=== PATIENT | female | born 1965 | race Caucasian/White ===

== ENCOUNTER 2020-06-28 08:59 | Outpatient (CLI) | payer BC, SELFPAY ==
--- NOTE | ~2020-06-28 | MM_ITS ---
EXAMINATION: MM scrn [place] implant BI w rian HISTORY: Screening mammogram TECHNIQUE: Craniocaudal and mediolateral oblique 3-D tomosynthesis images with implant displacement a nd synthetic 2-D images were generated. Craniocaudal and mediolateral oblique views of the breasts wi thout implant displacement were obtained using full field digital mammography. CAD analysis was submi tted and interpreted. COMPARISON: Comparison to multiple prior studies sequentially, with oldest reviewed study dated 09/25. BREAST PARENCHYMAL COMPOSITION: The breasts are heterogeneously dense, which may obscure small masses . FINDINGS: There is no evidence of suspicious mass, calcification, or architectural distortion to sugg est malignancy in either breast. There has been no suspicious interval change. IMPRESSION: 1. No mammographic evidence of malignancy. 2. Recommend routine screening mammography in one year. BI-RADS Category 1: Negative Reviewed, dictated and finalized at location A.
== END 2020-06-28 09:00 | disposition home or self-care (01) ==
LOC: ANHIMG 09:00
PROVIDERS: PCP Family Medicine; Visit Provider Family Medicine
DX: Z12.31 Encounter for screening mammogram for malignant neoplasm of breast (principal)
CPT/HCPCS: 77063; 77067

== ENCOUNTER 2021-07-05 16:53 | Outpatient (CLI) | payer BC, SELFPAY ==
--- NOTE | ~2021-07-05 | MM_ITS ---
EXAMINATION: MM scrn [place] implant BI w rian HISTORY: Screening mammogram TECHNIQUE: Craniocaudal and mediolateral oblique 3-D tomosynthesis images with implant displacement a nd synthetic 2-D images were generated. Craniocaudal and mediolateral oblique views of the breasts wi thout implant displacement were obtained using full field digital mammography. CAD analysis was submi tted and interpreted. COMPARISON: Comparison to multiple prior studies sequentially, with oldest reviewed study dated 10/25. BREAST PARENCHYMAL COMPOSITION: The breasts are extremely dense, which lowers the sensitivity of mamm ography. FINDINGS: There are subpectoral silicone implants. There is no evidence of suspicious mass, calcifica tion, or architectural distortion to suggest malignancy in either breast. There has been no suspiciou s interval change. IMPRESSION: 1. No mammographic evidence of malignancy. 2. Recommend routine screening mammography in one year. BI-RADS Category 1: Negative Reviewed, dictated and finalized at location A.
== END 2021-07-05 16:54 | disposition home or self-care (01) ==
LOC: ANHIMG 16:54
PROVIDERS: PCP Family Medicine; Visit Provider Family Medicine
DX: Z12.31 Encounter for screening mammogram for malignant neoplasm of breast (principal)
CPT/HCPCS: 77063; 77067

== ENCOUNTER 2022-09-05 02:55 | Day surgery (SDC) | payer BC, SELFPAY ==
[2022-08-22 14:58] VITALS: BMI 21.4
[2022-09-05 06:50] VITALS: BP 122/76; PULSE 104; RESP 20; TEMP 36.6; O2SAT 99
[2022-09-05] MEDS: LACTATED RINGERS 1,000 ML 150 ML IV CONT (07:01)
[2022-09-05 07:06] LABS: Glucose Point of Care 216 mg/dl (65-105)
--- NOTE | 2022-09-05 07:51 | PM.HPGS ---
History of Present Illness History of Present Illness Consent: Risks, benefits, and alternatives have been discussed and questions answered. Patient agrees to proceed with procedure. Chief complaint: history of colon cancer Narrative: Moon Parra is a 57 year old female Presents for colonoscopy. Patient has a history of colon cancer. Patient had this resected from the splenic flexure 2017. She presents today for screening colonoscopy. Family history is significant that her mother had colon polyps. Patient reports that her current weight appetite and bowel movements are normal. Patient denies abdominal pain. She has had no bleeding. Review of Systems Review of Systems: Review of systems noncontributory. [facility] Past Medical History Medical History Disease of tonsils and adenoids FHx: alpha 1 antitrypsin deficiency Surgical History Surgical History H/O breast augmentation H/O colectomy H/O microdiscectomy Hx of rectal polypectomy Family History Family History Grandparent Acute myocardial infarction Family history of coronary artery disease Mother Diabetes mellitus Family history of mental disorder Hypertension Father Hypertension Cerebrovascular accident Family history of Alzheimer's disease Social History Social History Smoking status: Never smoker Second hand tobacco smoke exposure: No Alcohol intake: never Substance use: never Substance use type: does not use Living arrangements: with family Gender identity (if verbalized by the patient): Female Spiritual care concerns: No Meds Home Medications and Allergies Home Medications Medication Instructions Recorded Confirmed Type insulin lispro 100 unit/mL 1 sliding scale dose subcut 01/03/20 08/22/22 History subcutaneous solution (Humalog USEASDIRECTD U-100 Insulin) lisinopril 5 mg tablet 5 mg PO DAILY 01/03/20 08/22/22 History calcium carbonate 600 mg calcium 600 mg PO DAILY 08/01/20 08/22/22 History (1,500 mg) tablet (Calcium) ketorolac 0.5 % eye drops 1 drop LEFT EYE EVERY OTHER DAY 08/01/20 08/22/22 History coenzyme Q10 75 mg capsule (Ultra 75 mg PO DAILY 03/12/21 08/22/22 History CoQ10) sumatriptan succinate 100 mg tablet See Rx Instructions PO .COMPLEX #9 12/10/21 08/22/22 Rx tabs antiarthritic combination no.2 900 900 mg PO DAILY 01/04/22 08/22/22 History mg tablet (glucosamine-chondroitin) sertraline 25 mg tablet 37.5 mg PO DAILY 90 days #135 tabs 04/09/22 08/22/22 Rx sodium,potassium,mag sulfates 17.5 See Rx Instructions PO .COMPLEX 08/01/22 Rx gram-3.13 gram-1.6 gram oral soln #354 mL (Suprep Bowel Prep Kit) atorvastatin 10 mg tablet 10 mg PO EVERY OTHER DAY 08/22/22 08/22/22 History multivitamin-ferrous 1 tablet PO DAILY 08/22/22 08/22/22 History fumarate-folic acid 18 mg-400 mcg tablet (Centrum Women) sodium,potassium,mag sulfates 17.5 See Rx Instructions PO .COMPLEX 09/02/22 Rx gram-3.13 gram-1.6 gram oral soln #354 mL (Suprep Bowel Prep Kit) Allergies Allergy/AdvReac Type Severity Reaction Status Date / Time No Known Allergies Allergy Verified 09/05/22 06:49 Vital Signs Vital Signs - 24 hr 09/05/22 06:50 Temperature 98 F Pulse Rate 104 H Respiratory Rate 20 Blood Pressure 122/76 Pulse Oximetry 99 Oxygen Delivery Room Air Exam Narrative: Physical exam reveals patient be alert. Vital signs stable. HEENT exam is unremarkable. Patient is anicteric. Lungs are clear to auscultation and percussion. Heart is without murmur or extra sounds. Abdomen bowel sounds are present soft nontender with no organomegaly. Digital external rectal exam is normal. Assessment and Plan Assessment and plan (1) History of colon can
--- NOTE | 2022-09-05 07:56 | WPDANESEPPF ---
Anes - Initial Pre Proc Eval Procedure: Operation Date: 09/05/22 08:00 Proposed Procedures p Screening Colonoscopy - James Aguilar MD Date/Time: 09/05/22 07:56 Surgeon: James Aguilar MD Pre Op Diagnosis: history of colon cancer Patient Data Age: 57 Gender: F Height: 1.73 m Weight: 63.2 kg Last Vital Signs Temp 98 F 09/05/22 06:50 Pulse 104 H 09/05/22 06:50 Resp 20 09/05/22 06:50 BP 122/76 09/05/22 06:50 Pulse Ox 99 09/05/22 06:50 O2 Del Method Room Air 09/05/22 06:50 Allergies Allergy/AdvReac Type Severity Reaction Status Date / Time No Known Allergies Allergy Verified 09/05/22 06:49 Home Medications Medication Instructions Recorded Confirmed Type insulin lispro 100 unit/mL 1 sliding scale dose subcut 01/03/20 08/22/22 History subcutaneous solution (Humalog USEASDIRECTD U-100 Insulin) lisinopril 5 mg tablet 5 mg PO DAILY 01/03/20 08/22/22 History calcium carbonate 600 mg calcium 600 mg PO DAILY 08/01/20 08/22/22 History (1,500 mg) tablet (Calcium) ketorolac 0.5 % eye drops 1 drop LEFT EYE EVERY OTHER DAY 08/01/20 08/22/22 History coenzyme Q10 75 mg capsule (Ultra 75 mg PO DAILY 03/12/21 08/22/22 History CoQ10) sumatriptan succinate 100 mg tablet See Rx Instructions PO .COMPLEX #9 12/10/21 08/22/22 Rx tabs antiarthritic combination no.2 900 900 mg PO DAILY 01/04/22 08/22/22 History mg tablet (glucosamine-chondroitin) sertraline 25 mg tablet 37.5 mg PO DAILY 90 days #135 tabs 04/09/22 08/22/22 Rx sodium,potassium,mag sulfates 17.5 See Rx Instructions PO .COMPLEX 08/01/22 Rx gram-3.13 gram-1.6 gram oral soln #354 mL (Suprep Bowel Prep Kit) atorvastatin 10 mg tablet 10 mg PO EVERY OTHER DAY 08/22/22 08/22/22 History multivitamin-ferrous 1 tablet PO DAILY 08/22/22 08/22/22 History fumarate-folic acid 18 mg-400 mcg tablet (Centrum Women) sodium,potassium,mag sulfates 17.5 See Rx Instructions PO .COMPLEX 09/02/22 Rx gram-3.13 gram-1.6 gram oral soln #354 mL (Suprep Bowel Prep Kit) Laboratory Tests 09/05/22 06:55 POC Capillary Glucose 216 mg/dl H mg/dl (65-105) Patient hx anesthesia problems: none Family hx anesthesia problems: none Results Review: All pre-operative results and documents have been reviewed as part of the pre-operative evaluation. [facility] Past Medical History Medical History (Reviewed 05/17/22 @ 09:46 by Ansley Anguiano [facility]) Disease of tonsils and adenoids FHx: alpha 1 antitrypsin deficiency Surgical History Surgical History H/O breast augmentation H/O colectomy H/O microdiscectomy Hx of rectal polypectomy Family History Family History (Reviewed 05/17/22 @ 09:46 by Ansley Anguiano [facility]) Grandparent Acute myocardial infarction Family history of coronary artery disease Mother Diabetes mellitus Family history of mental disorder Hypertension Father Hypertension Cerebrovascular accident Family history of Alzheimer's disease Social History Social History (Reviewed 05/17/22 @ 09:46 by Ansley Anguiano [facility]) Smoking status: Never smoker Second hand tobacco smoke exposure: No Alcohol intake: never Substance use: never Substance use type: does not use Living arrangements: with family Gender identity (if verbalized by the patient): Female Spiritual care concerns: No Anes - Eval Final PreProcedure Day of Procedure 09/05/22 07:56 Patient weight: normal Heart: regular rate and rhythm Lungs: clear to auscultation Airway: Mallampati scale class II Neurological: alert and oriented Last oral intake: >/= 8 hours ASA classification: III Emergent: no Anesthetic plan: proceed Anesthesia type and monitoring: general GIVS and standard monitoring Results Review: All pre-operative results and documents have been reviewed as part of the pre-operative evaluation. Informed Consent: The patient's a
[2022-09-05 08:17] VITALS: BP 102/54; PULSE 73; RESP 17; O2SAT 94
[2022-09-05 08:27] VITALS: BP 98/54; PULSE 72; RESP 20; O2SAT 93
[2022-09-05 08:37] VITALS: BP 107/58; PULSE 73; RESP 21; O2SAT 97
[2022-09-05 08:43] LABS: Glucose Point of Care 202 mg/dl (65-105)
== END 2022-09-05 08:45 | disposition home or self-care (01) ==
PROVIDERS: PCP Family Medicine; Visit Provider Internal Medicine Gastroenterology
PROC: 0DJD8ZZ Inspection of Lower Intestinal Tract, Via Natural or Artificial Opening Endoscopic (ICD-10-PCS; CPT 45378; principal; 2022-09-05 08:00)
DX: Z12.11 Encounter for screening for malignant neoplasm of colon (principal); K64.8 Other hemorrhoids; Z85.038 Personal history of other malignant neoplasm of large intestine; Z90.49 Acquired absence of other specified parts of digestive tract; Z98.0 Intestinal bypass and anastomosis status; Z79.4 Long term (current) use of insulin
CPT/HCPCS: 45378; 82948; J2704; J7120

== ENCOUNTER 2022-10-09 10:00 | Outpatient (CLI) | payer BC, SELFPAY ==
--- NOTE | ~2022-10-09 | MM_ITS ---
EXAMINATION: MM scrn [place] implant BI w rian HISTORY: Screening mammogram TECHNIQUE: Craniocaudal and mediolateral oblique 3-D tomosynthesis images with implant displacement a nd synthetic 2-D images were generated. Craniocaudal and mediolateral oblique views of the breasts wi thout implant displacement were obtained using full field digital mammography. CAD analysis was submi tted and interpreted. COMPARISON: Comparison to multiple prior studies sequentially, with oldest reviewed study dated 02/22/2016. BREAST PARENCHYMAL COMPOSITION: The breasts are extremely dense, which lowers the sensitivity of mamm ography FINDINGS: There are bilateral subpectoral silicone implants. There is no evidence of suspicious mass, calcification, or architectural distortion to suggest malignancy in either breast. There has been no suspicious interval change. IMPRESSION: 1. No mammographic evidence of malignancy. 2. Recommend routine screening mammography in one year. BI-RADS Category 1: Negative Reviewed, dictated and finalized at location A. COMBER
== END 2022-10-09 10:01 | disposition home or self-care (01) ==
PROVIDERS: PCP Family Medicine; Visit Provider Family Medicine
DX: Z12.31 Encounter for screening mammogram for malignant neoplasm of breast (principal)
CPT/HCPCS: 77063; 77067

== ENCOUNTER 2024-03-01 08:31 | Outpatient (CLI) | payer BC, SELFPAY ==
--- NOTE | ~2024-03-01 | MM_ITS ---
EXAMINATION: MM scrn [place] implant BI w rian HISTORY: Screening mammogram TECHNIQUE: Craniocaudal and mediolateral oblique 3-D tomosynthesis images with implant displacement a nd synthetic 2-D images were generated. Craniocaudal and mediolateral oblique views of the breasts wi thout implant displacement were obtained using full field digital mammography. CAD analysis was submi tted and interpreted. COMPARISON: 10/09/2022, 07/05/2021 bilateral implant screening mammogram examinations BREAST PARENCHYMAL COMPOSITION: The breasts are heterogeneously dense, which may obscure small masses . FINDINGS: Status post bilateral augmentation mammoplasty. There is no evidence of suspicious mass, ca lcification, or architectural distortion to suggest malignancy in either breast. There has been no cobos spicious interval change. IMPRESSION: 1. No mammographic evidence of malignancy. 2. Recommend routine screening mammography in one year. BI-RADS Category 2: Benign finding(s). Reviewed, dictated and finalized at location B.
== END 2024-03-01 08:32 | disposition home or self-care (01) ==
LOC: ANHIMG 08:34
PROVIDERS: PCP Family Medicine; Visit Provider Family Medicine
DX: Z12.31 Encounter for screening mammogram for malignant neoplasm of breast (principal)
CPT/HCPCS: 77063; 77067

== ENCOUNTER 2024-05-07 11:53 | Outpatient (CLI) | payer BC, SELFPAY ==
--- NOTE | ~2024-05-07 | XR_ITS ---
Left foot Technique: AP, oblique, and lateral views were obtained. Clinical History: Injury Findings: No acute fracture or dislocation is seen. Osseous alignment is anatomic. Joint spaces are p reserved without erosive or degenerative change. Soft tissues are unremarkable. Impression: Unremarkable left foot radiographs. Reviewed, dictated and finalized at location . Impression: Unremarkable left foot radiographs.
== END 2024-05-07 11:54 | disposition home or self-care (01) ==
LOC: ANHIMG 11:54
PROVIDERS: PCP Family Medicine; Visit Provider Family Medicine
DX: S99.922A Unspecified injury of left foot, initial encounter (principal); W22.8XXA Striking against or struck by other objects, initial encounter
CPT/HCPCS: 73630

== ENCOUNTER 2024-11-03 13:56 | Outpatient (CLI) | payer BC, SELFPAY ==
--- NOTE | ~2024-11-03 | DEXA_ITS ---
Bone Density Report Name: RYAN AZEVEDO Age: 59 Sex: Female Ethnicity: White Date of : 1965 Indication: postmenopausal; screening for osteoporosis; prior fracture; cancer; Referring Provider: LUDIN FREEDMAN Study: Bone densitometry was performed. Exam Date: November 03, 2024 Accession number: [id number] Bone Density: Region BMD T-score Z-score Classification AP Spine(L1-L4) 0.952 -0.9 0.7 Normal Femoral Neck (Left) 0.551 -2.7 -1.3 Osteoporosis Total Hip (Left) 0.782 -1.3 -0.3 Osteopenia Femoral Neck (Right) 0.615 -2.1 -0.8 Osteopenia Total Hip (Right) 0.830 -0.9 0.1 Normal Total Hip Mean 0.806 -1.1 -0.1 Osteopenia World Health Organization criteria for BMD impression classify patients as: Normal (T-score at or above -1.0), Osteopenia (T-score between -1.0 and -2.5), or Osteoporosis (T-score at or below -2.5). 10-year Fracture Risk: FRAX not reported because: Some T-score for Spine Total or Hip Total or Femoral Neck at or below -2.5 Clinical Information Provided by Patient: Has had a low trauma fracture Has used the following medications: Vitamin D, Calcium Has the following medical conditions: Cancer, Type 1 Diabetic Patient maximum height was 69 Menopause Age: 52 Drinks caffeinated beverages Onset of menses at age 13 Number of children 2 Missed period for more than 6 months in a row Impression: The patient has established osteoporosis, based on the Left Femoral Neck T-score and the existence of a prior fracture. The patient has risk factors, including: previous fracture. Discussion: HIGH RISK OF FRACTURE. BONE DENSITY IS UNDESIRABLY LOW AT ONE OR MORE SKELETAL SITES, CONSISTENT WITH POSTMENOPAUSAL OSTEOPOROSIS. This patient's lowest T-score, in a patient who has previously fractured, meets the World Health Organization's (WHO) criteria for severe osteoporosis. In untreated patients, the risk of osteoporotic fracture increases approximately two-fold for each 1.0 SD decrease in T-score. Low bone density is not the only risk factor for fracture; also consider factors such as patient's age, frailty or poor health, risk of falling, risk of injury, previous osteoporotic fracture, family history of osteoporosis, cigarette smoking, low body weight, etc. Not everyone with low bone mineral density has osteoporosis; osteomalacia and other metabolic bone disorders should also be considered. Patients who have osteoporosis should be evaluated for specific diseases and conditions (secondary causes) that may cause or contribute to bone loss. The [place] [employer] Endocrinologists (AACE) and National Osteoporosis Foundation (NOF) recommend pharmacologic intervention for all postmenopausal women whose T-score is in this range. The patient should follow a healthful lifestyle (good nutrition with adequate calcium and vitamin D, and appropriate weight-bearing exercise). Follow-Up: Consider a repeat BMD and Vertebral Fracture Assessment (VFA) exam in 2 years or sooner if medically necessary, to reassess this patient's status. Reported by: EV on 11/03/2024 2:50:00 PM. Reviewed, dictated and finalized at location AKrystal FRANCO
== END 2024-11-03 13:57 | disposition home or self-care (01) ==
LOC: ANHIMG 14:01
PROVIDERS: PCP Family Medicine; Visit Provider Obstetrics & Gynecology Gynecology
DX: Z78.0 Asymptomatic menopausal state (principal); M81.0 Age-related osteoporosis without current pathological fracture; M85.852 Other specified disorders of bone density and structure, left thigh; M85.851 Other specified disorders of bone density and structure, right thigh
CPT/HCPCS: 77080

== ENCOUNTER 2025-05-17 09:45 | Outpatient (CLI) | payer BC, SELFPAY ==
--- NOTE | ~2025-05-17 | MM_ITS ---
EXAMINATION: MM scrn [place] implant BI w rian HISTORY: Screening mammogram TECHNIQUE: Craniocaudal and mediolateral oblique 3-D tomosynthesis images with implant displacement a nd synthetic 2-D images were generated. Craniocaudal and mediolateral oblique views of the breasts wi thout implant displacement were obtained using full field digital mammography. CAD analysis was submi tted and interpreted. COMPARISON: 03/01/2024, 10/09/2022 BREAST PARENCHYMAL COMPOSITION: The breasts are extremely dense, which lowers the sensitivity of mamm ography. FINDINGS: There is no evidence of suspicious mass, calcification, or architectural distortion to sugg est malignancy in either breast. There has been no suspicious interval change. IMPRESSION: No mammographic evidence of malignancy. Recommend routine screening mammography in one year. BI-RADS Category 1: Negative Reviewed, dictated and finalized at [facility].
== END 2025-05-17 09:46 | disposition home or self-care (01) ==
PROVIDERS: PCP Family Medicine; Visit Provider Family Medicine
DX: Z12.31 Encounter for screening mammogram for malignant neoplasm of breast (principal)
CPT/HCPCS: 77063; 77067

== ENCOUNTER 2025-08-25 00:48 | Day surgery (SDC) | payer BC, SELFPAY ==
--- OUTSIDE RECORDS SUMMARY | 2010-05-21 10:30 | XMS_ITS | Continuity of Care Document ---
Author Organization [facility] Address [address] [address] [place] [address] Phone Care Team Providers Care Nurse Reviewer Name Role Phone Jamshid Hayden Unavailable Unavailable Procedures Procedure Date Office/outpatient Visit, Est Office/outpatient Visit, Est Office/outpatient Visit, Est Office/outpatient Visit, Est Fundus Photography W/ Report Office/outpatient Visit, Est Office/outpatient Visit, Est Fundus Photography W/ Report Office/outpatient Visit, Est Advance Directives Directive Yes / No Effective Date File Name No Information Encounters Encounter Description Practice Location Reason(s) For Visit Diagnoses Date Provider Providers Copied on Encounter Office/outpat ient Visit, [facility], [address] [place] [address] [address], [place], [place], [id number], tel:[phone] [facility] [place] No Information 8-201 0 Catracho Breen. [address] [place] , [address], [place], [address], [place]. tel:[phone] Office/outpat ient Visit, [facility], [address] [place] [address] [address], [place], [place], [id number], [place] tel:[phone] [facility] [place] No Information 9-200 9 Catracho Breen. [address], [address], [place], [address], [place]. tel:[phone] Office/outpat ient Visit, [facility], [id number] [place] [address] [address], [place], [place], [id number], [place] tel:[phone] [facility] No Information 3-200 9 Catracho Breen. [address] [place] [address] Center , [address], [place], [place], [facility], [place]. tel:[phone] Office/outpat ient Visit, [facility], [address] [place] [address] [address], [place], [place], [id number], [place] tel:[phone] [facility] No Information 0 7-200 8 Catracho Breen. [address] [place] [address] , [address], [place], [place], [facility], [place]. tel:[phone] Referring Provider: Jam[facility]azos, [facility] [place] [address], [place], [place], [facility]. tel:[phone] Office/outpat ient Visit, [facility], [address] [place] [address] [address], [place], [place], [id number], [place] tel:[phone] [facility] No Information 2 5-200 8 Catracho Breen. [address] [place] [address] [address], [address], [place], [place], [facility], [place]. tel:[phone] [facility], [address] [place] [address] [address], [place], [place], [id number], [place] tel:[phone] [facility] No Information 2 4-200 7 Catracho Breen. [facility] [address], [place], [address], [place]. tel:[phone] Referring Provider: Jamshid [facility]azos [facility] [address], [place], [place], [facility]. tel:[phone] Office/outpat ient Visit, [facility], [address], [place], [place], [id number], [place] tel:[phone] [facility] No Information 7 Catracho Breen. [address], [address], [place], [address], [place]. tel:[phone] Family History Family Member Type Diagnosis Age At Onset No Information Payers Payer name Insurance type Covered republican ID Authorbrayan chenvilma(s) [facility] CI [id number] Social History Type Description Quantity Date Captured Comments Sex Female Smoking Status No Information Chief Complaint And Reason For Visit No Information Reason For Referral Reason For Referral No Information History Of Present Illness Encounter Date Complaint History Of Prese nt Illness No Information Functional Status Date Functional Assessmen t No Information Instructions Date Instruction Additional Infor mation No Information Assessments Type Assessment Date No Information Patient Care Teams Name Effective Dates (start - stop) Status Members No Information
[2025-08-11 10:56] VITALS: BMI 21.4
--- OUTSIDE RECORDS SUMMARY | 2025-08-25 00:51 | XMS_ITS | Clinical Summary ---
Author Organization [facility] Address [address] [place] [address] Care Team Providers Care Communications Intern Name Role Phone Demond Myers MD Unavailable [phone] Scotty Munoz MD Unavailable [phone] Catherine Muller DO Primary Care Provider [phone] Allergies No known active allergies Medications atorvastatin (LIPITOR) 10 mg tabletIndicati ons:hyperlipid emia Take 1 tablet (10 mg total) by mouth compliance nurse before breakfast 1 tab po every other day 05/31/20 18 Active calcium carbonate-dileep min D3 600 mg calcium- 200 unit capsuleIndicat ions:Hypocalce tha Prevention Take 1 tablet by mouth compliance nurse before breakfast. Active coenzyme Q10 100 mg capsuleIndicat ions:supplemen t Take 1 capsule (100 mg total) by mouth compliance nurse before breakfast Active SUMAtriptan (IMITREX) 100 mg tabletIndicati ons:Migraine Take 1 tablet (100 mg total) by mouth once as needed for migraine Active glucosam-chond m-[id number]-C-ma ng 750-625-1,000 mg-mg-unit tablet Take by mouth Active ketorolac (ACULAR) 0.5 % ophthalmic solution 02/15/20 20 Active lisinopriL (PRINIVIL,ZEST RIL) 5 mg tablet TAKE 1 TABLET BY MOUTH EVERY MORNING 90 tablet 11/20/20 22 Active insulin glargine (LANTUS) 100 unit/mL vial for injection Take 12 Units every 24 hours in case of pump failure. 10 mL 1 01/07/20 24 025 Active glucagon (Baqsimi) 3 mg/actuation spray,non-aero laura Administer 1 spray into one nostril as needed (hypoglycemia) 1 each 1 01/07/20 24 Active blood glucose diagnostic (Accu-Chek Guide test strips) strip CHECK GLUCOSE EIGHT DAILY 2800 each 1 11/12/20 24 Active sertraline (ZOLOFT) 100 mg tablet Take 1 tablet (100 mg total) by mouth daily ALONG WITH 25MG TO EQUAL 125MG DAILY 04/28/20 25 Active sertraline (ZOLOFT) 25 mg tablet Take 1 tablet (25 mg total) by mouth daily ALONG WITH 100MG TO EQUAL 125MG DAILY 05/19/20 25 Active insulin aspart (NovoLOG) 100 unit/mL vial for injection USE UP TO 70 UNITS EVERY 24 HOURS VIA INSULIN PUMP DIRECTED 60 mL 3 07/27/20 25 Active NovoLOG 100 unit/mL vial for injection PATCH USES UP TO 70 UNITS PER DAY VIA INSULIN PUMP DX CODE E10.9 60 mL 3 09/08/20 23 025 Discontinued Active Problems Problem Noted Date Diagnosed Date Osteoporosis 01/10/2025 Assessment & Plan (01/10/2025 11:18 AM MAINTENANCE AND REPAIR WORKER): T score of -2.7 at left femoral neck. She has f/u to address this tomorrow with another provider. We discussed the following treatment options: Fosamax - weekly pill Reclast - yearly IV Prolia - every 6 month shot Hypertension 03/18/2022 Assessment & Plan (06/13/2025 1:10 PM CDT): BP is ok on current regimen. Assessment & Plan (01/10/2025 12:49 PM MAINTENANCE AND REPAIR WORKER): BP in reasonable range today. Continue lisinopril. Assessment & Plan (08/23/2024 11:48 AM CDT): At goal on current therapy. Assessment & Plan (05/12/2024 10:30 AM CDT): At goal on current therapy. Assessment & Plan (01/07/2024 2:00 PM MAINTENANCE AND REPAIR WORKER): At goal on current therapy. Assessment & Plan (08/18/2023 11:59 AM CDT): At goal on current therapy. Assessment & Plan (04/17/2023 10:05 AM CDT): At goal on current therapy. Assessment & Plan (12/19/2022 9:09 AM MAINTENANCE AND REPAIR WORKER): At goal on current therapy. Assessment & Plan (07/24/2022 1:15 PM CDT): At goal on current therapy. Assessment & Plan (03/18/2022 6:15 PM CDT): At goal on current therapy. Other hyperlipidemia 11/14/2021 Assessment & Plan (06/13/2025 11:31 AM CDT): At goal on current therapy. Assessment & Plan (01/10/2025 11:17 AM MAINTENANCE AND REPAIR WORKER): At goal on current therapy. Assessment & Plan (08/23/2024 11:46 AM CDT): At goal on current therapy. Assessment & Plan (05/12/2024 10:31 AM CDT): At goal on current therapy. Assessment & Plan (01/07/2024 2:01 PM MAINTENANCE AND REPAIR WORKER): At goal on current therapy. Assessment & Plan (08/18/2023 11:59 AM CDT): At goal on current therapy. Assessment & Plan (04/17/2023 10:05 AM CDT): At goal on current therapy. Assessment & Plan (12/19/2022 9:09 AM MAINTENANCE AND REPAIR WORKER): At goal on current therapy. Assessment & Plan (07/24/2022 1:15 PM CDT): At goal on current therapy. Assessment & Plan (03/18/2022 12:26 PM CDT): At goal on current therapy. Assessment & Plan (11/14/2021 1:54 PM MAINTENANCE AND REPAIR WORKER): At goal on current therapy. History of colon cancer 10/01/2018 High risk medication use 09/03/2018 Assessment & Plan (09/04/2018 2:09 PM CDT): Intense insulin regimen in the setting of variable PO intake places patient at increased risk of hypoglycemia. We will continue to intensely monitor blood glucose QID and titrate insulin as needed to optimize glycemic control to avoid hypoglycemic/hyperglycemic events. Assessment & Plan (09/03/2018 4:50 PM CDT): Check blood glucoses QID clerical receptionist associated with adverse incidents 09/03/2018 Assessment & Plan (09/04/2018 2:19 PM CDT): Insulin pump and supplies at bedside. She is alert and oriented x 3 and has the mental capacity and manual dexterity to self-administer her own insulin pump. We reviewed the need to complete the insulin pump bedside log as a stipulation to use the insulin pump as an inpatient. She agrees to complete the insulin pump bedside log as required. Insulin pump settings adjusted to reflect current insulin requirements during this admission. TIME BASAL RATE TOTAL BASAL DAILY DOSE: 13.2 units 0000 0.55 units/hour SENSITIVITY: 50 IAT: 4 hours TARGET: 100-120 ICR: 0000: 1:15 1700: 1:11 2000: 1:15 Assessment & Plan (09/03/2018 4:50 PM CDT): Insulin pump in place. Type 1 diabetes mellitus without complication Overview (09/04/2018): 53 year old female with PMH significant for T1DM managed with insulin pump who presents for sub-total colectomy for adenocarcinoma. She was diagnosed in 1980 and has been on an insulin pump since 1996. She follows with Dr. Myers. Most recent a1c was 6.8%. HOME REGIMEN: medtronic - humalog 0000 0.55u/hr 0300 0.575 0500 0.675 0900 0.775 1100 0.675 1500 0.625 1800 0.675 TDB 15.675 ICR 0000 1:15 1700 1:11 2000 1:15 Sensitivity 50 TG 100-120 AIT 4 hours Assessment & Plan (06/13/2025 1:10 PM CDT): A1c at goal on current therapy. She will send me her recent labs. Eye exams current. She denies neuropathy symptoms and last monofilament exam in last year was normal. Assessment & Plan (01/10/2025 12:49 PM MAINTENANCE AND REPAIR WORKER): A1c at goal on current therapy. Labs current. Continue eye exams with Dr. Parrish. No evidence of neuropathy on monofilament exam today. Assessment & Plan (08/23/2024 11:49 AM CDT): A1c at goal on current therapy. She will schedule a visit with Dr. Parrish. Assessment & Plan (05/12/2024 10:45 AM CDT): A1c at goal on current therapy. Labs reviewed. No neuropathy on examination today. Recommend yearly eye exams. Assessment & Plan (01/07/2024 2:01 PM MAINTENANCE AND REPAIR WORKER): A1c at goal on current therapy. Assessment & Plan (08/18/2023 12:00 PM CDT): A1c at goal on current therapy. Doing well on 780G pump. Assessment & Plan (04/17/2023 10:06 AM CDT): A1c a bit above goal. Tightened ICR with lunch from 1:13 to 1:12. I recommended that she upgrade to the Medtronic 780G pump with Guardian 4 sensor. Assessment & Plan (12/19/2022 9:10 AM MAINTENANCE AND REPAIR WORKER): A1c above goal. Tighten ICR with breakfast from 10.[address] temp target of 150 mg/dl at times of exercise. Labs UTD. Eye exams UTD. Assessment & Plan (07/24/2022 1:15 PM CDT): A1c above goal. Tightened ICR with breakfast from 1:15 to 1:13. She had labs with her PCP this spring. Continue ophthalmology follow up. Assessment & Plan (03/18/2022 6:15 PM CDT): Curiously, A1c continues to be higher than what I would predict based on her excellent CGM report. I would keep her current pump settings. She is training for a half-marathon. Labs through PCP's office soon. Seeing eye doctor routinely. Assessment & Plan (11/14/2021 1:54 PM MAINTENANCE AND REPAIR WORKER): A1c above goal, but glucoses at goal based on review of this week's CGM data. Would not make any pump changes at present. Will order urine microalbumin:Cr; otherwise, labs UTD. F/u with Dr. Parrish in ophthalmology. Assessment & Plan (09/04/2018 2:17 PM CDT): Over the previous 24 hours, blood glucose in good margin of safety, but not at goal with range of 93-207 mg/dl with 21 units insulin from insulin gtt and 8.325 units per insulin pump yesterday. She was transitioned from the insulin gtt to the insulin pump yesterday at her home settings and became hypoglycemic to 52 mg/dl overnight. Ms. Azevedo reported that she suspended the insulin pump for ~ 2 hours after this event. Fasting blood glucose at 0443 was 93 mg/dl. Today, blood glucose was not checked before breakfast or lunch with point of care as the staff nuclear medicine technologist was monitoring blood glucose through the patient's insulin pump. Hospital pump policy was reviewed with the staff nuclear medicine technologist; explaining that POCT blood glucose testing must be completed with the hospital equipment. The RN verbalized understanding. Due to the heavy basal rate, the decreased appetite and hypoglycemia during the night; we will decrease the basal rate on the insulin pump to 0.55 units/hour continuous and maintain the remaining pump settings. Recommend: - Continue insulin pump (see setting below) Insulin pump: medtronic - humalog Program A 0000 0.55u/hr TDB 13.2 units ICR 0000 1:15 1700 1:11 2000 1:15 Sensitivity 50 TG 100-120 AIT 4 hours Discharge: Home Insulin pump Follow-up: Dr. Myers (home street light wirer) Recommendations for diabetes management were discussed with the primary team. For questions regarding this patient today, please call Katerina Burr NP at [phone]. If after hours, please contact the Diabetes Fellow at [phone]. Assessment & Plan (09/03/2018 4:57 PM CDT): Inpatient goal is 100-180mg/dl 53yo w/ DM1 presents for sub-total colectomy for adenocarcinoma. Kept on insulin infusion overnight. Insulin drip rates have decreased. Will plan on transitioning back to insulin pump therapy. Recommend: -resuming insulin pump. Please continue insulin drip for 1 hour prior to discontinuing insulin pump Insulin pump: medtronic - humalog 0000 0.55u/hr 0300 0.575 0500 0.675 0900 0.775 1100 0.675 1500 0.625 1800 0.675 TDB 15.675 ICR 0000 1:15 1700 1:11 1999 1:15 Sensitivity 50 TG 100-120 AIT 4 hours Discharge: Home Insulin pump Follow-up: Dr. Myers (home street light wirer) Diabetes 09/02/2018 Acute pain 09/02/2018 Cancer of splenic flexure 08/10/2018 Overview (08/10/2018): Added automatically from request for surgery [id number] Assessment & Plan (09/04/2018 2:09 PM CDT): S/p sub-total colectomy. Post-operative pain and stress will worsen glycemic control. Assessment & Plan (09/03/2018 4:43 PM CDT): S/p sub-total colectomy. Post-operative pain and stress will worsen glycemic control. Colon adenocarcinoma 07/28/2018 Encounters Date Type Department Care Team Description 06/13/2025 11:00 AM CDT Office Visit [facility] [address] [address] Memo Santiago MD Type 1 diabetes mellitus without complication (HCC) (Primary Dx); Other hyperlipidemia; Hypertension, unspecified type from Last 3 Months Immunizations Immunization Administration Dates Next Due COVID-19 mRNA (VAZATA) 0.3 m L (30 mcg) vaccine (12 years and up) 08/18/2025 Influenza, Quadrivalent, Rec ombinant, Egg Free, Preservative Free, Intramuscular 11/07/2022,01/03/2020 Influenza, Quadrivalent, Spl it, Preservative Free, Intramuscular 11/07/2023,09/05/2018 Influenza, Trivalent, Recomb inant, Egg Free, Preservative Free, Antibiotic Free, IM (FLUBLOK) 11/08/2024 Actacell SARS-CoV-2 Monovalent Vaccination (12+ Yrs) PURPLE 11/13/2021,03/18/2021,02/24/2021 Pneumococcal Conjugate Pcv20 11/07/2022 Pneumococcal Conjugate, Unspecified 11/05/2021 Pneumococcal Polysaccharide PPV23 11/05/2021 Tdap 02/08/2019,07/05/2017 Surgical History Surgery Date Site/Laterality Comments TONSILLECTOMY age 1 or 2 SHOULDER ARTHROSCOPY Right SHOULDER SURGERY Right Broken shoulder; plated TRANSUMBILICAL AUGMENTATION MAMMAPLASTY 11/24/2006 - 11/23/2007 BACK SURGERY 11/24/2010 - 11/23/2011 lumbar. -microdiscectomy SUBTOTAL COLECTOMY 09/02/2018 Laparoscopic-assisted subtotal colectomy with ileo descending colon anastomosis. Intra operative colonoscopy. Medical History Medical History Date Comments Diabetes mellitus insulin pump Hyperlipidemia Migraines History of colon cancer History of colon cancer Macular edema Left eye Family History Medical History Relation Name Comments Arthritis Father Family history of arthritis - (Added by TW Conv) Hypertension Father Family history of hypertension - (Added by TW Conv) Stroke Father Family history of cerebrovascular accident (CVA) - (Added by TW Conv) Melanoma Maternal Grandmother Arthritis Mother Family history of arthritis - (Added by TW Conv) Cancer Mother Family history of malignant neoplasm - (Added by TW Conv) Diabetes Mother Family history of diabetes mellitus - (Added by TW Conv) Hypertension Mother Family history of hypertension - (Added by TW Conv) Lymphoma Mother Scoliosis Mother Family history of scoliosis - (Added by TW Conv) Relation Name Status Comments Father Maternal Grandmother Mother Social History Tobacco Use Types Packs/Day Years Used Date Smoking Tobacco: Never Smokeless Tobacco: Never Tobacco Cessation:Counseling Given: Not Answered Alcohol Use Standard Drinks/Week Comments No 0 (1 standard drink = 0.6 oz pur e alcohol) Comments No Sex and Gender Information Value Date Recorded Sex Assigned at Not on file Legal Sex Female 12:15 AM MAINTENANCE AND REPAIR WORKER Gender Identity Not on file Sexual Orientation Not on file Obstetrics History Last Filed Vital Signs Vital Sign Reading Time Taken Comments Blood Pressure 140/80 06/13/2025 11:15 AM CDT Pulse 87 06/13/2025 11:15 AM CDT Temperature 36.7 C (98.1 F) 09/11/2023 2:11 PM CDT Respiratory Rate 16 09/05/2018 5:20 AM CDT Oxygen Saturation 100% 06/13/2025 11:15 AM CDT Inhaled Oxygen Concentration - - Weight 60.6 kg (133 lb 8 oz) 06/13/2025 11:15 AM CDT Height 172.7 cm (5' 8) 06/13/2025 11:15 AM CDT Body Mass Index 20.3 06/13/2025 11:15 AM CDT Plan of Treatment Health Maintenance Due Date Last Done Comments Breast Cancer Screening-Mammogram 1963 Cervical Cancer Screening 1963 Colon Cancer Screening-Colonoscopy 1963 Depression Screening 1963 Foot Exam 1963 Hepatitis C Screening 1963 TSH Level 1963 eGFR 1963 Dilated Eye Exam 1973 Hepatitis B Screening 1981 Regular Well Visit/Exam 18-64 1981 Zoster Vaccine (1 of 2) 2013 Albumin Creatinine Ratio, Urine 11/14/2022 1 Influenza Vaccine (#1) 2025 4, 11/07/2023, 11/07/2022, Additional history exists Lipid Panel 08/23/2025 08/23/2024, 04/24, 08/18/2023, Additional history exists Hemoglobin A1C 12/14/2025 06/13/2025, 12/25, 08/23/2024, Additional history exists DTaP/Tdap/Td Vaccine (3 - Td or Tdap) 02/08/2029 02/08/2019, 07/05/2017 Pneumococcal vaccine <65 Completed 022, 11/05/2021, 11/05/2021 Covid-19 Vaccine Completed 08/18/2025, , 03/18/2021, Additional history exists Procedures Procedure Name Priority Date/Time Associated Diagnosis Comments POCT HEMOGLOBIN A1C Routine 06/13/2025 1 1:43 AM CDT Type 1 diabetes mellitus without complication (HCC) POCT LIPID PANEL Routine 08/23/2024 12:2 6 PM CDT Type 1 diabetes mellitus without complication (HCC) ALBUMIN CREATININE RATIO, URINE Routine 11/14/2021 12:47 PM MAINTENANCE AND REPAIR WORKER Type 1 diabetes mellitus without complication (HCC) from Last 3 Months or Most Recently Relevant to Health Maintenance Results * (ABNORMAL) POCT hemoglobin A1c (06/13/2025 11:43 AM CDT) Hemoglobin A1C, POC 6.9(A) 4.0 - 5.6 % Capillary blood 06/13/2025 1 1:43 AM CDT Memo Santiago MD POINT OF CARE TEST TAMY THOMPSON Final Result * POCT lipid panel (08/23/2024 12:26 PM CDT) Cholesterol, POC 165 mg/dL HDL, POC 54 mg/dL Triglycerides, POC 82 mg/dL LDL Cholesterol POC 94 mg/dL Chol/HDL Ratio, POC 3.0 Non-HDL Cholesterol, POC 111 mg/dL Cholesterol Total, POC 165 mg/dL Capillary blood 08/23/2024 1 2:26 PM CDT Memo Santiago MD POINT OF CARE TEST TAMY THOMPSON Final Result * Albumin Creatinine Ratio, Urine (11/14/2021 12:47 PM MAINTENANCE AND REPAIR WORKER) Creatinine ur 55.9 Not Estab. mg/dL [facility] - 01 Microalbumin, ur <3.0 Not Estab. ug/mL [facility] - 01 Comment:Verified by repeat analysis Microalbumin/cre at ratio <5 0 - 29 mg/g creat [facility] - 01 Comment: Normal: 0 - 29 Moderately increased: 30 - 300 Severely increased: >300 Urine 11/14/2021 12:4 7 PM MAINTENANCE AND REPAIR WORKER 11/14/2021 Narrative [facility] - 11/15/2021 9:10 AM MAINTENANCE AND REPAIR WORKER Performed at: 01 - [facility] [id number] Faculty Research Physician: Lamonte Pond PhD, Phone: [phone] Memo Santiago MD LAB URINE ORDERABLES nal Result [facility] - 01 from Last 3 Months or Most Recently Relevant to Health Maintenance Insurance CHOICE [facility] [place] Advance [place]ives For more information, please contact: [phone] * Full Code (Latest Code Status on File) Date Activated Date Inactivated Comments 09/02/2018 8:10 PM 09/05/2018 5:06 PM Care Teams Communications Intern Relationship Specialty Start Date End Date Catherine Muller DO [address] [facility] [place] [id number] [place] [address] PCP - General Family Medicine 12/19/22 Demond Myers MD [id number] [facility] [address] [place] [address] Consulting Physician Endocrinology Diabetes & Metabolism 03/13/21 Scotty Munoz MD [address] [facility] [place] [id number] [place] [address] Surgeon Colon and Rectal Surgery 09/13/22
--- OUTSIDE RECORDS SUMMARY | 2025-08-25 00:51 | XMS_ITS ---
Author Organization [facility] Address [address] [place] [address] Care Team Providers Care Pit Crew Support Worker Name Role Phone Demond Myers MD Unavailable [phone] Scotty Munoz MD Unavailable [phone] Catherine Muller DO Primary Care Provider [phone] Active Problems Problem Noted Date Diagnosed Date Osteoporosis 01/10/2025 Assessment & Plan (01/10/2025 11:18 AM PUMP ERECTOR): T score of -2.7 at left femoral neck. She has f/u to address this tomorrow with another provider. We discussed the following treatment options: Fosamax - weekly pill Reclast - yearly IV Prolia - every 6 month shot Hypertension 03/18/2022 Assessment & Plan (06/13/2025 1:10 PM CDT): BP is ok on current regimen. Assessment & Plan (01/10/2025 12:49 PM PUMP ERECTOR): BP in reasonable range today. Continue lisinopril. Assessment & Plan (08/23/2024 11:48 AM CDT): At goal on current therapy. Assessment & Plan (05/12/2024 10:30 AM CDT): At goal on current therapy. Assessment & Plan (01/07/2024 2:00 PM PUMP ERECTOR): At goal on current therapy. Assessment & Plan (08/18/2023 11:59 AM CDT): At goal on current therapy. Assessment & Plan (04/17/2023 10:05 AM CDT): At goal on current therapy. Assessment & Plan (12/19/2022 9:09 AM PUMP ERECTOR): At goal on current therapy. Assessment & Plan (07/24/2022 1:15 PM CDT): At goal on current therapy. Assessment & Plan (03/18/2022 6:15 PM CDT): At goal on current therapy. Other hyperlipidemia 11/14/2021 Assessment & Plan (06/13/2025 11:31 AM CDT): At goal on current therapy. Assessment & Plan (01/10/2025 11:17 AM PUMP ERECTOR): At goal on current therapy. Assessment & Plan (08/23/2024 11:46 AM CDT): At goal on current therapy. Assessment & Plan (05/12/2024 10:31 AM CDT): At goal on current therapy. Assessment & Plan (01/07/2024 2:01 PM PUMP ERECTOR): At goal on current therapy. Assessment & Plan (08/18/2023 11:59 AM CDT): At goal on current therapy. Assessment & Plan (04/17/2023 10:05 AM CDT): At goal on current therapy. Assessment & Plan (12/19/2022 9:09 AM PUMP ERECTOR): At goal on current therapy. Assessment & Plan (07/24/2022 1:15 PM CDT): At goal on current therapy. Assessment & Plan (03/18/2022 12:26 PM CDT): At goal on current therapy. Assessment & Plan (11/14/2021 1:54 PM PUMP ERECTOR): At goal on current therapy. History of [...] 4:50 PM CDT): Check blood glucoses QID naturopathic physician associated with adverse incidents 09/03/2018 Assessment & [...] normal. Assessment & Plan (01/10/2025 12:49 PM PUMP ERECTOR): A1c at goal on current therapy. Labs [...] exams. Assessment & Plan (01/07/2024 2:01 PM PUMP ERECTOR): A1c at goal on current therapy. Assessment [...] sensor. Assessment & Plan (12/19/2022 9:10 AM PUMP ERECTOR): A1c above goal. Tighten ICR with breakfast [...] routinely. Assessment & Plan (11/14/2021 1:54 PM PUMP ERECTOR): A1c above goal, but glucoses at goal [...] became hypoglycemic to 52 mg/dl overnight. Ms. Mark reported that she suspended the insulin pump for ~ 2 hours after this event. Fasting blood glucose at 0443 was 93 mg/dl. Today, blood glucose was not checked before breakfast or lunch with point of care as the staffing administrator was monitoring blood glucose through the patient's insulin pump. Hospital pump policy was reviewed with the staffing administrator; explaining that POCT blood glucose testing must [...] Home Insulin pump Follow-up: Dr. Myers (home rooms director) Recommendations for diabetes management were discussed with the primary team. For questions regarding this patient today, please call Katerina Burr NP at [phone]. If after hours, please contact the Diabetes Fellow at [phone]. Assessment & Plan (09/03/2018 4:57 PM CDT): [...] Home Insulin pump Follow-up: Dr. Myers (home rooms director) Diabetes 09/02/2018 Acute pain 09/02/2018 Cancer of splenic flexure 08/10/2018 Overview (08/10/2018): Added automatically from request for surgery [id number] Assessment & Plan (09/04/2018 2:09 PM CDT): S/p sub-total colectomy. Post-operative pain and stress will worsen glycemic control. Assessment & Plan (09/03/2018 4:43 PM CDT): S/p sub-total colectomy. Post-operative pain and stress will worsen glycemic control. Colon adenocarcinoma 07/28/2018 Current Treatment and Therapy Plans No current plan information found. Past Treatment and Therapy Plans No past plan information found. Lifetime Dose Tracking * Chemical Lifetime Dose Automatic Entry Manual Entr y DLP 3,739 mGycm 3,739 mGycm 0 mGycm
[2025-08-25 08:36] VITALS: BP 109/68; PULSE 99; RESP 16; TEMP 36.6; O2SAT 100; BMI 19.8
[2025-08-25] MEDS: LACTATED RINGERS 1,000 ML 150 ML IV CONT (08:44)
--- NOTE | 2025-08-25 09:44 | PM.IMHP ---
H&P: HPI History of Present Illness Date/Time: 08/25/25 09:44 Chief Complaint: History of colon cancer Narrative: the patient underwent right hemicolectomy for colon cancer many years ago. She has been undergoing periodic colonoscopies, the last one 5 years ago. She is here today for her surveillance colonoscopy. Review of Systems Review of Systems: All systems reviewed & are unremarkable except as noted in HPI and below PMFSH Past Medical History Medical History Benign neoplasm of colon FHx: alpha 1 antitrypsin deficiency Disease of tonsils and adenoids Surgical History Surgical History Hx of rectal polypectomy H/O microdiscectomy H/O breast augmentation H/O colectomy Family History Family History Grandparent Acute myocardial infarction Family history of coronary artery disease Mother Diabetes mellitus Family history of mental disorder Hypertension Father Hypertension Cerebrovascular accident Family history of Alzheimer's disease Social History Social History Social History: Caffeine-coffee daily Smoking status: Never smoker Second hand tobacco smoke exposure: No Alcohol intake: never Substance use: never Substance use type: does not use Lack of Transportation: No Lack of Food: Never True Current Housing: I Have Housing Concerned About Future Housing: No Difficulty Paying Gas/Electric Bills: No Difficulty Paying for Meds: No Currently Unemployed: No Education: Associate Degree Difficulty w/ Childcare or Family Care: No Living arrangements: with family Occupation/Education: retired Gender identity (if verbalized by the patient): Female Spiritual care concerns: No Meds Home Medications and Allergies Home Medications ?Medication ?Instructions ?Recorded ?Confirmed ?Type coenzyme Q10 75 mg capsule (Ultra 75 mg PO DAILY 03/12/21 08/25/25 History CoQ10) antiarthritic combination no.2 900 900 mg PO DAILY 01/04/22 08/25/25 History mg tablet (glucosamine-chondroitin) multivitamin-ferrous 1 tablet PO DAILY 08/22/22 08/25/25 History fumarate-folic acid 18 mg-400 mcg tablet (Centrum Women) insulin aspart U-100 100 unit/mL 1 sliding scale dose subcut 05/12/23 08/25/25 History subcutaneous cartridge (Novolog USEASDIRECTD PenFill U-100 Insulin aspart) melatonin 3 mg capsule 1 mg PO QHS PRN sleep 05/14/24 08/11/25 History ketorolac 0.5 % eye drops 2 drp RIGHT EYE 2XD 11/08/24 08/25/25 History sumatriptan succinate 100 mg tablet 100 mg PO DAILY PRN migraine 02/16/25 08/11/25 History headache magnesium 200 mg tablet 200 mg PO DAILY 05/10/25 08/25/25 History sertraline 25 mg tablet 25 mg PO DAILY #90 tabs 05/19/25 08/25/25 Rx calcium 600 mg (as carbonate)-vit 1 tablet PO DAILY 06/13/25 08/25/25 History D3 20 mcg (800 unit) chewable tablet (Caltrate plus D) buspirone 10 mg tablet 10 mg PO BID #180 tabs 07/04/25 08/25/25 Rx lisinopril 5 mg tablet See Rx Instructions .Route 07/27/25 08/25/25 Rx .COMPLEX #90 tabs sertraline 100 mg tablet 100 mg PO DAILY #90 tabs 07/27/25 08/25/25 Rx atorvastatin 10 mg tablet See Rx Instructions .Route 07/28/25 08/25/25 Rx .COMPLEX #45 tabs Allergies Allergy/AdvReac Type Severity Reaction Status Date / Time No Known Allergies Allergy Verified 08/11/25 10:53 Vital Signs Vital Signs - 24 hr 08/25/25 08:36 Temperature 97.9 F Pulse Rate 99 Respiratory Rate 16 Blood Pressure 109/68 Pulse Oximetry 100 Oxygen Delivery Room Air Exam Const: General: cooperative and healthy appearing Resp: Effort & Inspection: normal respiratory effort and able to speak in complete sentences Auscultation: clear to auscultation bilaterally Cardio: Rate: regular rate Rhythm: regular rhythm GI: Inspection: normal to inspection GI Palp: No No hepatosplenomegaly present Auscultation: normal bowel sounds Rectal Exam: deferred Skin: General skin exam: normal color Psych: Appearance: grossly normal Mental Status: mental status grossly normal Assessment and Plan Assessment and plan (1) History of colon cancer: Code(s): Z85.038 - Personal history of other malignant neoplasm of large intestine Status: Acute Assessment and Plan: The patient is deemed a good candidate for the procedure. Consent signed. Will proceed.
--- NOTE | 2025-08-25 09:47 | WPDANESEPPF ---
Anes - Initial Pre Proc Eval Procedure: Operation Date: 08/25/25 10:00 Proposed Procedures p Screening Colonoscopy - Denny Galo MD Date/Time: 08/25/25 09:47 Surgeon: Denny Galo MD Pre Op Diagnosis: Personal history of other malignant neoplasm of la Patient Data Age: 60 Gender: F Height: 1.73 m Weight: 59.1 kg Last Vital Signs Temp 36.6 C 08/25/25 08:36 Pulse 99 08/25/25 08:36 Resp 16 08/25/25 08:36 BP 109/68 08/25/25 08:36 Pulse Ox 100 08/25/25 08:36 O2 Del Method Room Air 08/25/25 08:36 Allergies Allergy/AdvReac Type Severity Reaction Status Date / Time No Known Allergies Allergy Verified 08/11/25 10:53 Home Medications ?Medication ?Instructions ?Recorded ?Confirmed ?Type coenzyme Q10 75 mg capsule (Ultra 75 mg PO DAILY 03/12/21 08/25/25 History CoQ10) antiarthritic combination no.2 900 900 mg PO DAILY 01/04/22 08/25/25 History mg tablet (glucosamine-chondroitin) multivitamin-ferrous 1 tablet PO DAILY 08/22/22 08/25/25 History fumarate-folic acid 18 mg-400 mcg tablet (Centrum Women) insulin aspart U-100 100 unit/mL 1 sliding scale dose subcut 05/12/23 08/25/25 History subcutaneous cartridge (Novolog USEASDIRECTD PenFill U-100 Insulin aspart) melatonin 3 mg capsule 1 mg PO QHS PRN sleep 05/14/24 08/11/25 History ketorolac 0.5 % eye drops 2 drp RIGHT EYE 2XD 11/08/24 08/25/25 History sumatriptan succinate 100 mg tablet 100 mg PO DAILY PRN migraine 02/16/25 08/11/25 History headache magnesium 200 mg tablet 200 mg PO DAILY 05/10/25 08/25/25 History sertraline 25 mg tablet 25 mg PO DAILY #90 tabs 05/19/25 08/25/25 Rx calcium 600 mg (as carbonate)-vit 1 tablet PO DAILY 06/13/25 08/25/25 History D3 20 mcg (800 unit) chewable tablet (Caltrate plus D) buspirone 10 mg tablet 10 mg PO BID #180 tabs 07/04/25 08/25/25 Rx lisinopril 5 mg tablet See Rx Instructions .Route 07/27/25 08/25/25 Rx .COMPLEX #90 tabs sertraline 100 mg tablet 100 mg PO DAILY #90 tabs 07/27/25 08/25/25 Rx atorvastatin 10 mg tablet See Rx Instructions .Route 07/28/25 08/25/25 Rx .COMPLEX #45 tabs Laboratory Tests 08/25/25 08:39 POC Capillary Glucose 164 H mg/dl (65-105) Patient hx anesthesia problems: none Family hx anesthesia problems: none Results Review: All pre-operative results and documents have been reviewed as part of the pre-operative evaluation. [facility] Past Medical History Medical History Benign neoplasm of colon FHx: alpha 1 antitrypsin deficiency Disease of tonsils and adenoids Surgical History Surgical History Hx of rectal polypectomy H/O microdiscectomy H/O breast augmentation H/O colectomy Family History Family History Grandparent Acute myocardial infarction Family history of coronary artery disease Mother Diabetes mellitus Family history of mental disorder Hypertension Father Hypertension Cerebrovascular accident Family history of Alzheimer's disease Social History Social History Social History: Caffeine-coffee daily Smoking status: Never smoker Second hand tobacco smoke exposure: No Alcohol intake: never Substance use: never Substance use type: does not use Lack of Transportation: No Lack of Food: Never True Current Housing: I Have Housing Concerned About Future Housing: No Difficulty Paying Gas/Electric Bills: No Difficulty Paying for Meds: No Currently Unemployed: No Education: Associate Degree Difficulty w/ Childcare or Family Care: No Living arrangements: with family Occupation/Education: retired Gender identity (if verbalized by the patient): Female Spiritual care concerns: No Anes - Eval Final PreProcedure Day of Procedure 08/25/25 09:47 Patient weight: normal Heart: regular rate and rhythm Lungs: clear to auscultation Airway: Mallampati scale class II Neurological: alert and oriented Last oral intake: >/= 8 hours ASA classification: II Emergent: yes Anesthetic plan: proceed Anesthesia type and monitoring: general GIVS and standard monitoring Results Review: All pre-operative results and documents have been reviewed as part of the pre-operative evaluation. Informed Consent: The patient's anesthetic plan and its attendant risks and benefits were discussed with the patient/family/POA. Questions were solicited and answers provided to the satisfaction of the patient/family/POA. Adult Diabetes Labs Most Recent Diabetes Results: Hemoglobin A1c, (<5.7) 7.3 % of total Hgb H 05/09/25 Glucose, (65-99) 99 mg/dL 05/09/25 Cholesterol, (<200) 201 mg/dL H 05/09/25 Triglycerides, (<150) 94 mg/dL 05/09/25 Creatinine, (0.50-1.05) 0.85 mg/dL 05/09/25 BUN, (7-25) 17 mg/dL 05/09/25 Sodium, (135-146) 140 mmol/L 05/09/25 Potassium, (3.5-5.3) 4.3 mmol/L 05/09/25 Chloride, (98-110) 103 mmol/L 05/09/25 Carbon Dioxide, (20-32) 24 mmol/L 05/09/25 Calcium, (8.6-10.4) 9.4 mg/dL 05/09/25 AST, (10-35) 18 U/L 05/09/25 ALT, (6-29) 16 U/L 05/09/25 Total Protein, (6.1-8.1) 6.5 g/dL 05/09/25 Albumin, (3.6-5.1) 4.6 g/dL 05/09/25 Management Diabetes Management: Date of last retinal or dilated eye exam Date of last comprehensive foot exam Visual inspection previously performed Yes 01/03/20 Peripheral pulses previously performed Sensory foot exam previously performed Yes 01/03/20 Date of last diabetes education Date of last dental visit
[2025-08-25 10:11] VITALS: BP 94/56; PULSE 87; RESP 18; O2SAT 97
[2025-08-25 10:21] VITALS: BP 115/64; PULSE 86; RESP 11; O2SAT 100
[2025-08-25 10:31] VITALS: BP 128/70; PULSE 79; RESP 14; O2SAT 100
== END 2025-08-25 10:39 | disposition home or self-care (01) ==
PROVIDERS: PCP Family Medicine; Referring Provider Family Medicine; Visit Provider Internal Medicine Gastroenterology
PROC: 0DJD8ZZ Inspection of Lower Intestinal Tract, Via Natural or Artificial Opening Endoscopic (ICD-10-PCS; CPT 45378; principal; 2025-08-25 10:00)
DX: Z12.11 Encounter for screening for malignant neoplasm of colon (principal); Z85.038 Personal history of other malignant neoplasm of large intestine; Z98.0 Intestinal bypass and anastomosis status; Z90.49 Acquired absence of other specified parts of digestive tract; Z79.4 Long term (current) use of insulin
CPT/HCPCS: 45378; 82948; J2003; J2704; J7120